=== PATIENT | female | born 1970 | race Two or more races ===

== ENCOUNTER 2018-04-11 06:01 | Day surgery (SDC) | payer BC, OTHER ==
[2018-04-10 15:46] VITALS: BMI 21.9
[2018-04-11] MEDS ORDERED: DEXAMETHASONE SOD PHOSPHATE 4 MG/1 ML VIAL ONE (07:18)
[2018-04-11] MEDS ORDERED: PROPOFOL 20 ML ONE (07:18)
[2018-04-11] MEDS ORDERED: SUCCINYLCHOLINE CHLORIDE 200 MG/10 ML VIAL ONE (07:18)
[2018-04-11] MEDS ORDERED: LIDOCAINE HCL/PF 2% SDV 5ML VIAL ONE (07:18)
[2018-04-11] MEDS ORDERED: ONDANSETRON 4 MG/2 ML VIAL ONE (07:18)
[2018-04-11] MEDS ORDERED: MIDAZOLAM HCL 2 MG/2 ML SINGLE DOSE VIAL ONE (07:18)
[2018-04-11] MEDS ORDERED: fentaNYL CITRATE 250 MCG/5 ML VIAL ONE (07:18)
[2018-04-11] MEDS ORDERED: ROCURONIUM BROMIDE 50 MG/5 ML VIAL ONE (07:18)
[2018-04-11] MEDS ORDERED: DESFLURANE GAS 240 ML BOTTLE IH ONE (07:25)
--- NOTE | 2018-04-11 07:34 | HP ---
History & Physical Update - History History: No Change - Physical Physical: No Change - Assessment Assessment: No Change - Plan Plan: No Change (History is updated from 03/23/18, unchanged Consent signed and witnessed All questions answered)
[2018-04-11] MEDS ORDERED: KETOROLAC TROMETHAMINE 30 MG/1 ML VIAL ONE ×2 (08:42→08:47)
[2018-04-11] MEDS ORDERED: oxyCODONE HCL 5 MG TABLET PO PRN ×3 (08:43→09:22)
[2018-04-11] MEDS ORDERED: ONDANSETRON 4 MG/2 ML VIAL IVPUSH PRN ×2 (08:43→09:22)
[2018-04-11] MEDS ORDERED: LACTATED RINGERS SOLUTION 1,000 ML IV SCH (08:45)
[2018-04-11] MEDS ORDERED: IBUPROFEN 800 MG/8 ML IJ IVPB PRN (09:22)
[2018-04-11] MEDS ORDERED: IBUPROFEN 600 MG TABLET (FP) PO PRN (09:22)
--- NOTE | 2018-04-11 09:28 | OP ---
Operative Note - Note: Operative Date: 04/11/18 Pre-Operative Diagnosis: 47yo P0 with Menometrorrhagia and fibroids Operation: Hysteroscopy, Myomectomy, Polypectomy, Endometrial ablation Findings: 1. R lateral wall 2cm submucosal fibroid 2. R lateral wall polyp 3. distorted endometrial cavity Post-Operative Diagnosis: Same as Pre-op Surgeon: Asmita Moore Anesthesiologist/TONGUER: Chasity Sanchez Anesthesia: General Specimens Removed: 1. Fibroid. 2. Polyp Estimated Blood Loss (mls): 0 Instrument used (Debridements only): Symphion Drains & Tubes with Location: Fluid Deficit 550cc Drains, Volume Out (mls): 20 Fluid Volume Replaced (mls): 500 Operative Report Dictated: Yes
[2018-04-11] MEDS ORDERED: ELECTROLYTE-148 SOLN 1,000 ML IV SCH (09:30)
[2018-04-11 13:11] VITALS: TEMP 98.4
[2018-04-11 13:29] VITALS: BP 145/84; PULSE 81
--- NOTE | 2018-04-11 23:00 | OP ---
DATE OF OPERATION: 04/11/2018 PREOPERATIVE DIAGNOSIS: A 47-year-old para 0 with menometrorrhagia and fibroids. OPERATION: Hysteroscopy, myomectomy, polypectomy, endometrial ablation. FINDINGS: Right lateral wall 2 cm submucosal fibroid, right lateral wall polyp , and distorted endometrial cavity. POSTOPERATIVE DIAGNOSIS: A 47-year-old para 0 with menometrorrhagia and fibroids. SURGEON: Asmita Moore M.D. ANESTHESIOLOGIST: Chasity Sanchez M.D. ANESTHESIA: General SPECIMENS: Removed: 1. Fibroid. 2. Polyp. ESTIMATED BLOOD LOSS: Zero. INSTRUMENTS USED: Symphion by [employer]. DESCRIPTION OF OPERATIVE PROCEDURE: After assuring informed consent, patient was brought to the operating room where she was placed in dorsal lithotomy position. Perineum and vagina were prepped and draped in sterile fashion. Symphion hysteroscope was assembled, white balanced, and primed, and urinary bladder was emptied with straight catheter. The Tobias retractors were placed into the vagina and uterine cervix was visualized and grasped with single-toothed tenaculum. The cervix was dilated with gradually increasing in size dilators to accommodate the 6.3-mm hysteroscope that was inserted through the cervix without any difficulty. The uterine cavity was distended and contents were visualized. The bilateral ostia were visualized and on the right lateral wall approximately 2 cm fibroid and approximately 1 cm polyp were found, and the resection piece was introduced through the hysteroscope and fibroid and polyp were resected, and contents of resection were suctioned. All debris was removed from the uterus using the Symphion resectoscope suction and subsequently the Symphion hysteroscope was removed from the uterus and Stephanie hysteroscope was introduced into the uterus, cavity was surveyed again. The excellent integrity of the hysteroscope and cervix were achieved without any egression of fluid and uterine cavity pressure was maintained, and 10-minute cycle was completed achieving excellent ablation of the endometrial cavity. Subsequently the normal saline in the cavity was cooled down for 2 minutes, and hysteroscope was removed after assuring that proper heating and cooling cycle were completed. All instruments were removed from the vagina and the cervix, excellent hemostasis was noted. Instrument and sponge count was correct x2. Patient had 20 mL of urine drained at the beginning of the procedure. Fluid deficit was 550 mL, and patient received 500 mL of IV fluids and brought to the recovery room in stable condition. Vini [id number] MTDD
--- NOTE | 2018-04-13 16:59 | PATH ---
Surgical Pathology Report Patient Name: JEF ARRIOLA [facility]. Rec. #: [id number] /Age/Gender: 1970 (Age: 47) / F Account: [id number] Location: [facility] SURGICAL Taken: 04/11/2018 Received: 04/11/2018 Reported: 04/13/2018 Physicians: Asmita Moore M.D. Specimen(s) Received ENDOMETRIAL FIBROID AND POLYP Clinical History Menorrhagia, fibroid uterus Final Diagnosis ENDOMETRIAL FIBROD AND POLYP, EXCISION: FRAGMENTS OF SMOOTH MUSCLE BUNDLES, CONSISTENT WITH LEIOMYOMA. ENDOMETRIAL POLYP. SEPARATE FRAGMENTS OF PROLIFERATIVE ENDOMETRIUM. Electronically Signed Yahaira Rand M.D. Gross Description Received in formalin labeled "endometrial fibroid and polyp," is a 4 g, 5.0 x 4.5 x 0.5 cm aggregate of dow fragments of firm tissue, consistent with morcellated fibroids. The specimen is entirely submitted in 5 cassettes. /04/11/2018 saudi04/11/2018
== END 2018-04-11 12:30 | disposition home or self-care (01) ==
LOC: JASU-SURG 06:01
PROVIDERS: ATTEND Obstetrics & Gynecology
PROC: 0UB97ZX Excision of Uterus, Via Natural or Artificial Opening, Diagnostic (ICD-10-PCS; 2018-04-11)
PROC: 0UDB7ZX Extraction of Endometrium, Via Natural or Artificial Opening, Diagnostic (ICD-10-PCS; 2018-04-11)
PROC: 0U5B8ZZ Destruction of Endometrium, Via Natural or Artificial Opening Endoscopic (ICD-10-PCS; principal; 2018-04-11 07:30)
PROC: 0UDB7ZX Extraction of Endometrium, Via Natural or Artificial Opening, Diagnostic (ICD-10-PCS; 2018-04-11 07:30)
PROC: 0UB98ZZ Excision of Uterus, Via Natural or Artificial Opening Endoscopic (ICD-10-PCS; 2018-04-11 07:30)
DX: N92.1 Excessive and frequent menstruation with irregular cycle (principal); D25.9 Leiomyoma of uterus, unspecified; N84.0 Polyp of corpus uteri
CPT/HCPCS: 84703; 88305-TC